=== PATIENT | male | born 1955 | race Caucasian/White ===

== ENCOUNTER 2024-08-11 18:09 | Emergency (ER) | payer MEDICARE, OTHER, SELFPAY ==
[2024-08-11 18:21] VITALS: BP 171/80
[2024-08-11 18:54] LABS: % Basophils 0.3 % (0-2); % Eosinophils 0.9 % (0-6); % Immature Granulocytes 0.3 % (0-0.5); % Lymphocytes 16.7 % (20.5-51.1); % Monocytes 7.5 % (1.7-9.3); % Neutrophils 74.3 % (42.2-75.2); Absolute Eosinophils 0.1 10^3/uL (0-0.7); Absolute Lymphocytes 2.3 10^3/uL (1.2-3.4); Absolute Neutrophils 10.2 10^3/uL (1.4-6.5); Hematocrit 34.7 % (39.0-52.0); Hemoglobin 12.2 g/dL (13.0-18.0); Mean Corp Hgb Conc. 35.2 g/dL (33.0-37.0); Mean Corpuscular Hgb 33.2 pg (27.0-31.0); Mean Corpuscular Volume 94.3 fL (80.0-94.0); Mean Platelet Volume 9.5 fL (7.4-10.4); Nucleated Red Blood Cells % 0 % (-); Platelet Count 244 10^3/uL (130-400); Red Blood Cell Count 3.68 10^6/uL (4.70-6.10); Red Cell Dist. Width 12.9 % (11.5-14.5); White Blood Cell Count 13.8 10^3/uL (4.8-10.8)
[2024-08-11 19:12] LABS: ALT (SGPT) 20 U/L (0-50); AST (SGOT) 22 U/L (17-59); Albumin 4.4 g/dl (3.5-5.0); Alkaline Phosphatase 58 U/L (38-126); Blood Urea Nitrogen 16 mg/dl (9-20); Calcium 9.7 mg/dl (8.4-10.2); Carbon Dioxide 28 mmol/L (22-30); Chloride 100 mmol/L (98-107); Glucose 136 mg/dl (70-99); Lipase 187 U/L (23-300); Potassium 4.6 mmol/L (3.5-5.1); Sodium 139 mmol/L (135-145); Total Bilirubin 0.6 mg/dl (0.2-1.3); Total Protein 7.5 g/dl (6.3-8.2); eGFR 59.47
--- NOTE | 2024-08-11 20:09 | ED.GENMED ---
History of Present Illness
General
Chief Complaint: Abdominal Pain
Source: patient
Exam Limitations: none
Time Seen by Provider: 08/11/24 20:09
Nursing documentation reviewed up to this point in time: agreed with
History of Present Illness
History of Present Illness:
Patient is a 68-year-old male who presents to the ER for evaluation of abdominal pain and diarrhea for the past 1 month. He reports when his symptoms first started he had intermittent diarrhea however it has gotten progressively worse. He has
taken Metamucil several times a day as well as Imodium. Today he had discomfort in his lower abdomen prior to urinating and prior to having diarrhea which is what prompted him to come to the ER. He has not seen his family provider for his
symptoms. He denies any fever or chills. He denies any blood in his urine blood in his stools.
He denies any recent antibiotic use.
His last colonoscopy was between 5 and 7 years ago and negative.
Past History
Past History
ED Past Medical History: Hypercholesterolemia and IDDM
ED Past Surgical History: Orthopedic (Lumbar laminectomy)
Social History
Tobacco: Smoker
Alcohol: None
Drug: None
Personal:
Living: with family
Employment: Employed
Review of Systems
Review of Systems
Allergies reviewed?: Yes
All Other Systems: ROS reviewed and negative except as documented in HPI and ROS
Constitutional: Denies fever, fatigue or chills
EENT: Reports no symptoms
Respiratory: Reports no symptoms
Cardiac: Reports no symptoms
ABD/GI: Reports abdominal pain and diarrhea; Denies nausea or vomiting
: Reports no symptoms
Musculoskeletal: Reports no symptoms
Skin: Reports no symptoms
Psychiatric: Reports no symptoms
Phy Exam
General Physical Exam
General Presentation: no apparent distress
General age: appears stated age
General Skin: warm and dry
General Habitus: normal
General Mental: alert
General Hydration: appears well hydrated
Gastrointestinal Exam
Gastrointestinal Exam: soft and other (Nonspecific mild abdominal tenderness)
Neurological Exam
Neurological Exam: alert and oriented x3
Musculoskeletal Exam
Musculoskeletal Exam: full ROM
Skin Exam
Skin Exam: normal color and warm/dry
Psychiatric Exam
Psychiatric Exam: normal mood/affect
Course
Orders/Labs/Results
Orders:
Orders
08/11/24 18:37
Complete Blood Count/With Diff Urgent
Comprehensive Metabolic Panel Urgent
Lipase Urgent
08/11/24 20:31
0.9% Sodium Chloride 1000 ml [Nss] 1,000 ml IV BOLUS
08/11/24 20:34
CT Abd/Pel (IV only)-DH only Urgent
Comment:
Reason For Exam: abd pain/diarrhea
Stool Culture Urgent
CLARA Source: Feces/Stool
Specimen Description:
08/11/24 22:16
UA Reflex to Culture [Urinalysis Reflex To Culture] Urgent
Date Specimen was Collected: 08/11/24
Time Specimen was Collected: 20:34
Urine Microscopic Reflex Cult Urgent
08/11/24 22:33
Amoxicillin 875 mg/Clav 125 mg [Augmentin 875 mg/125 mg] 1 tablet PO NOW STA
Abnormal Lab Results
08/11/24 08/11/24
18:37 22:16
WBC 13.8 H 10^3/uL
(4.8-10.8)
RBC 3.68 L 10^6/uL
(4.70-6.10)
Hgb 12.2 L g/dL
(13.0-18.0)
Hct 34.7 L %
(39.0-52.0)
MCV 94.3 H fL
(80.0-94.0)
MCH 33.2 H pg
(27.0-31.0)
Absolute Neuts (auto) 10.2 H 10^3/uL
(1.4-6.5)
Absolute Monos (auto) 1.0 H 10^3/uL
(0.1-0.6)
Lymphocytes % 16.7 L %
(20.5-51.1)
Glucose 136 H mg/dl
(70-99)
Urine Glucose 2+ A
(Negative)
Urine Albumin (Reflex) 1+ A
(Neg - Trace)
08/11/24 18:37
08/11/24 18:37
Vital Signs
Initial and Last Documented VS:
Initial Vital Signs
Temp Pulse Resp BP Pulse Ox
98.6 F 85 16 171/80 98
08/11/24 18:21 08/11/24 18:21 08/11/24 18:21 08/11/24 18:21 08/11/24 18:21
Last Documented Vital Signs
Temp Pulse Resp BP Pulse Ox
98.6 F 74 18 164/71 100
08/11/24 18:21 08/11/24 22:17 08/11/24 22:17 08/11/24 22:17 08/11/24 22:17
Education Instructor consulted with Physician
Education Instructor consulted with physician?: Yes
Name of Physician Consulted: [email or web address]
MDM/Problems Addressed
Differential Diagnosis Includes:
Not limited to viral syndrome gastroenteritis diverticulitis UTI
MDM/Problems Addressed:
Patient is a 68-year-old male with intermittent diarrhea and abdominal pain for the past month presents to the ER for evaluation. He denies any fever chills denies any blood in stool. Patient presents awake alert nontoxic white count minimally
elevated at 13 .8 however afebrile here no fevers at home. His chemistries are unremarkable his urine is negative. CAT scan done shows severe acute uncomplicated diverticulitis of the proximal sigmoid colon will give dose of Augmentin. Case
reviewed with ED physician patient is very nontoxic discussed close outpatient follow-up with family doctor for reevaluation the next several days and also will give patient GI referral.
*Critical Care Note
Total Time (30-74mins, 75-104mins- exclusive of procedures): Not Applicable
ED Attending Note
-
Portions of this chart may have been created with voice recognition software.� Occasional wrong word or��sound alike� substitutions may have occurred due to the inherent limitations of voice recognition software.
Discharge Plan
Departure
Patient Disposition: Home (Routine Discharge)
Date of Disposition: 08/11/24
Time of Disposition: 22:34
Patient with high blood pressure during this ER visit?: Yes
Condition: Fair
Covid-19: Not Applicable
Discharge Problem:
Diverticulitis
Instructions: Diverticulitis (DC)
Prescriptions:
New
amoxicillin-pot clavulanate 875-125 mg tablet
1 tab PO BID Qty: 20 0RF
No Action
Insulin
20 unit SC DAILY
Patient Comments:
can't remember name
pantoprazole 40 MG tablet,delayed release (DR/EC)
40 mg PO DAILY Qty: 30 0RF
hydrocodone-acetaminophen 1 TABLET tablet
1 - 2 tab PO Q4HPRN PRN (Reason: pain) Qty: 15 0RF
Referrals:
García Shea MD [Active] -
Jaime Alegre MD [Family Provider] -
Activity Restrictions/Additional Instructions:
As discussed your CAT scan shows diverticulitis. You were given first dose of antibiotic here in the ER. A prescription was sent to pharmacy and take as directed. [place] diet. Please call your family doctor tomorrow to schedule an appointment for
reevaluation in the next several days as well as GI. Return if any worsening of symptoms of increased pain fever chills nausea vomiting.
Interventions
Interventions:
*Risk Screen - Suicide Last Done: 08/11/24 18:21
*Neglect/Abuse Screening Last Done: 08/11/24 18:21
TP-Bhghoz-Eovpjbxqlp Assessment Last Done: 08/11/24 20:43
Discharge Date and Time
Print Language: ICELANDIC
[2024-08-11 20:32] VITALS: BMI 29.8
[2024-08-11] MEDS: NSS 1000 IV (20:39)
[2024-08-11 22:17] VITALS: BP 164/71
[2024-08-11 22:24] LABS: Urine Albumin 1+ (Neg - Trace); Urine Bilirubin Negative (Negative); Urine Character Clear (Clear); Urine Color Yellow; Urine Glucose 2+ (Negative); Urine Ketone Negative (Negative); Urine Leukocyte Negative (Negative); Urine Nitrite Negative (Negative); Urine Occult Blood Negative (Negative); Urine Urobilinogen Negative (Neg - 1+)
[2024-08-11 22:36] LABS: Urine Red Blood Cell 0-2 /HPF (0-2); Urine White Cell 0-2 /HPF (0-5)
[2024-08-11] MEDS: AUGMENTIN 875 MG/125 MG 1 TABLET PO (22:41)
== END 2024-08-11 22:48 | disposition home or self-care (01) ==
LOC: EMR 18:09
PROVIDERS: Emergency Medicine; Nurse Practitioner; EMERGENCY PHYSICIAN Emergency Medicine; FAMILY PHYSICIAN Internal Medicine
DX: K57.32 Diverticulitis of large intestine without perforation or abscess without bleeding (principal); R03.0 Elevated blood-pressure reading, without diagnosis of hypertension; E11.9 Type 2 diabetes mellitus without complications; E78.00 Pure hypercholesterolemia, unspecified; F17.200 Nicotine dependence, unspecified, uncomplicated; Z79.4 Long term (current) use of insulin
CPT/HCPCS: 99284; 96360; 74177; 80053; 81003; 81015; 83690; 85025; Q9967